=== PATIENT | female | born 1960 | race Caucasian/White ===

== ENCOUNTER 2021-04-20 11:22 | Emergency (ER) | payer BC ==
[~2021-04-20] VITALS: Ht 167.6 cm; Wt 101.0 kg
[2021-04-20 11:31] VITALS: BP 149/95
[2021-04-20] MEDS ORDERED: KETOROLAC 30 MG/ML VIAL. IVP ONE (12:00)
[2021-04-20] MEDS ORDERED: BENZONATATE 100 MG CAPSULE. PO ONE (12:00)
[2021-04-20] MEDS ORDERED: IBUPROFEN 600 MG TABLET. PO ONE (12:00)
[2021-04-20] MEDS ORDERED: IV NORMAL SALINE 1,000ML 1,000 ML IV ONE (12:00)
[2021-04-20] MEDS ORDERED: ACETAMINOPHEN 325 MG TABLET PO ONE (12:00)
--- NOTE | 2021-04-20 12:15 | PHYS DOC ---
Past History Additional Past Medical Histor: SVT Past Surgical History: Appendectomy Additional Past Surgical Histo: hernia repair, cardiac cath Adult General Chief Complaint Chief Complaint: FEVER HPI HPI Patient is a 60-year-old female presents to the emergency department with chief complaint of whitish colored sputum with cough since January, nasal pressure and face pressure with greenish-yellowish nasal sputum production when blowing nose that started approximately 10 days ago, reports a fever of 101.4 last night, patient reports she is worried she may have the COVID-19 virus, patient also worried she might have a sinus infection, patient denies chest pains or shortness of breath, denies dizziness, headaches, syncopal or near syncopal episodes, reports she has received the COVID-19 virus vaccination series, has received a flu vaccination in the fall 2020, reports receiving the pneumonia vaccine 10 years ago, patient states she has a history of pneumonia 5 times in the past. Patient reports her family members forced her to come to the emergency department to get Covid tested. Patient denies other physical complaints or physical concerns. Review of Systems Review of Systems 14 body systems of review of systems have been reviewed. See HPI for pertinent positives and negative responses, otherwise all other systems are negative, nonpertinent or noncontributory. Constitutional: Negative except as outlined in HPI above. Skin: Negative except as outlined in HPI above. Eyes: Negative except as outlined in HPI above. HENT: Negative except as outlined in HPI above. Respiratory: Negative except as outlined in HPI above. Cardiovascular: Negative except as outlined in HPI above. GI: Negative except as outlined in HPI above. : Negative except as outlined in HPI above. Musculoskeletal: Negative except as outlined in HPI above. Integument: Negative except as outlined in HPI above. Neurologic: Negative except as outlined in HPI above. Endocrine: Negative except as outlined in HPI above. Lymphatic: Negative except as outlined in HPI above. Psychiatric: Negative except as outlined in HPI above. Current Medications Current Medications Current Medications Medications (Trade) Dose Ordered Sig/Caitlin Start Time Stop Time Status Last Admin Dose Admin Acetaminophen (Tylenol) 650 mg 1X ONCE 04/20/21 12:00 04/20/21 12:01 DC Benzonatate (Tessalon Perle) 100 mg 1X ONCE 04/20/21 12:00 04/20/21 12:01 DC Ibuprofen (Motrin) 600 mg 1X ONCE 04/20/21 12:00 04/20/21 12:01 DC Ketorolac Tromethamine (Toradol 30mg Vial) 30 mg 1X ONCE 04/20/21 12:00 04/20/21 11:55 DC Sodium Chloride 1,000 ml @ 1,000 mls/hr 1X ONCE 04/20/21 12:00 04/20/21 11:55 DC Allergies Allergies Allergies Coded Allergies Type Severity Reaction Last Updated Verified lisinopril Adverse Reaction Severe COUGH 04/20/21 Yes Uncoded Allergies Type Severity Reaction Last Updated Verified SULFA Allergy Intermediate Rash 04/20/21 Physical Exam Physical Exam Constitutional: Well developed, well nourished, no acute distress, non-toxic appearance. 60-year-old female in no apparent distress. HENT: Normocephalic, atraumatic. Pain with palpation over maxillary and frontal sinuses, bilateral nasal turbinates boggy, scant clear drainage from bilateral nares, bilateral TMs within normal limits, oropharynx moist, pink, no deep tissue infectious process appreciated, no lymphadenopathy of the head or neck appreciated. Patient speaking in normal voice tones. Eyes: Conjunctiva normal, no discharge. Neck: Normal range of motion, no stridor. Cardiovascular: No cyanosis appreciated, distal cap refill less than 2 seconds. Lungs & Thorax: Patient is in no respiratory distress, no audible adventitious lung sounds appreciated. Lung sounds clear to auscultate all lung barajas. Abdomen: Nontender, no abnormalities noted. Skin: Warm, dry, no erythema, no rash. Back: No tenderness, no deformities. Extremities: No tenderness, no cyanosis, no clubbing, ROM intact, no edema. Neurologic: Alert and oriented X 3, normal motor function, normal sensory function, no focal deficits noted. Psychologic: Affect normal, judgement normal, mood normal. Current Patient Data Vital Signs Vital Signs Date Time Temp Pulse Resp B/P (MAP) Pulse Ox O2 Delivery O2 Flow Rate FiO2 04/20/21 11:31 99.2 104 18 149/95 (113) 97 Room Air EKG EKG [] Radiology/Procedures Radiology/Procedures REASON: Fever, congestion, cough PROCEDURE: CHEST AP ONLY EXAMINATION: Chest radiograph. VIEWS: 1 COMPARISON: none. INDICATION:60 years, Female, fever, cough and congestion. FINDINGS: Normal cardiomediastinal silhouette. Minimal bibasilar subsegmental atelectasis. No focal consolidation. No pleural effusion or pneumothorax. No acute osseous process. IMPRESSION: No acute cardiopulmonary process. Electronically signed by: Patrice Mckeon MD (04/20/2021 1:01 PM) [id number] Heart Score C/O Chest Pain: No Risk Factors: Risk Factors: DM, Current or recent (<one month) smoker, HTN, HLP, family history of CAD, obesity. Risk Scores: Risk Factors: DM, Current or recent (<one month) smoker, HTN, HLP, family history of CAD, obesity. Course & Med Decision Making Course & Med Decision Making Pertinent Labs and Imaging studies reviewed. (See chart for details) 60-year-old female, vital signs reviewed, presents emerged from concerning sinus pressure, stuffy nose for the past several weeks with cough nonproductive. Physical examination consistent with acute sinusitis, will order chest x-ray, COVID-19 testing rapid and PCR, rapid flu A/B testing. Patient's chest x-ray nonconcerning for acute pulmonary process, patient's rapid Covid19 testing and rapid A/B testing negative, upon reevaluation of the patient, the patient's vital signs are within normal limits, patient remains nontoxic in appearance and in no apparent distress. Discussed with patient will treat for acute sinusitis, discussed antibiotics with side effects, follow-up with primary care soon for ongoing management, return to ER precautions or concerns, patient gave verbal understanding of and is amenable to ED discharge planning. Discussed with the patient all findings and diagnostic testing as well as the need to follow-up with their primary care provider for further evaluation and treatment or return to the ED if any new or worsening symptoms. Strict return precautions were also discussed at length, the patient voiced understanding and agreement with the discharge planning. The patient was nontoxic in appearance, in no apparent distress, and hemodynamically stable at the time of disposition. Dragon Disclaimer Dragon Disclaimer This electronic medical record was generated, in whole or in part, using a voice recognition dictation system. Departure Departure: Impression: Primary Impression: Acute sinusitis Disposition: HOME / SELF CARE / HOMELESS Condition: GOOD Referrals: BONITA ENCISO MD (PCP) Patient Instructions: Sinusitis Additional Instructions: You were seen in the emergency department today for nasal congestion, cough. Your chest x-ray did not show concerning signs of infection or pneumonia. Your rapid Covid testing was negative, however there is a PCR test pending that should be available the next 24 to 48 hours. Your rapid flu A/B testing was negative today. Because of your ongoing symptoms for greater than 10 days I am treating you for acute sinusitis, please take this Augmentin medication twice a day for the next 7 days. Follow-up with your primary care physician as we discussed soon, return to the ER for worsening symptoms or other concerns. Thank you for visiting our Emergency Department. It was a pleasure taking care of you today in the emergency department and we appreciate you trusting us with your care. If any additional problems come up don't hesitate to return to visit us. Please follow up with your primary care provider so they can plan additional care if needed and know about the problem that you had. If symptoms worsen come back to the Emergency Department. Any concerning symptoms that start such as chest pain, shortness of air, weakness or numbness on one side of the body, running high fevers or any other concerning symptoms return to the ER. EMERGENCY DEPARTMENT GENERAL DISCHARGE INSTRUCTIONS Thank you for coming to [facility] (ED) today and trusting us with you care. We trust that you had a positivie experience in our Emergency Department. If you wish to speak to the department management, you may call the director at [phone]. YOUR FOLLOW UP INSTRUCTIONS ARE FOLLOWS: 1. Do you have a private Doctor? If you do not have a private doctor, please ask for a resource list of physicians or clinics that may be able to assist you with follow up care. 2. The Emergency Physician has interpreted your x-rays. The X-Ray specialist will also review them. If there is a change in the findings, you will be notified in 48 hours when at all possible. 3. A lab test or culture has been done, your results will be reviewed and you will be notified if you need a change in treatment. ADDITIONAL INSTRUCTIONS AND INFORMATION: 1. Your care today has been supervised by a physician who is specially trained in emergency care. Many problems require more than one evaluation for a complete diagnosis and treatment. We recommend that you schedule your follow up appointment as recommended to ensure complete treatment of you illness or injury. If you are unable to obtain follow up care and continue to have a problem, or if your condition worsens, we recommend that you return to the ED. 2. We are not able to safely determine your condition over the phone nor are we able to give sound medical advice over the phone. For these safety reasons, if you call for medical advice we will ask you to come to the ED for further evaluation. 3. If you have any questions regarding these discharge instructions please call the ED at [phone]. SAFETY INFORMATION: In the interest of safety, wellness, and injury prevention; we encourage you to wear your sealbelt, if you smoke; quite smoking, and we encourage family to use a protective helmet for bicycling and other sporting events that present an increased risk for head injury. IF YOUR SYMPTOMS WORSEN OR NEW SYMPTOMS DEVELOP, OR YOU HAVE CONCERNS ABOUT YOUR CONDITION; OR IF YOUR CONDITION WORSENS WHILE YOU ARE WAITING FOR YOUR FOLLOW UP A PPOINTMENT; EITHER CONTACT YOUR PRIMARY CARE DOCTOR, THE PHYSICIAN WHOSE NAME AND NUMBER YOU WERE GIVEN, OR RETURN TO THE ED IMMEDIATELY. Scripts Amoxicillin/Potassium Clav (AUGMENTIN 875-125 TABLET) 1 Each Tablet 1 TAB PO BID for acute sinusitis for 7 Days, #14 TAB 0 Refills Prov: MICHELET BARAJAS APRN 04/20/21 Problem Qualifiers Primary Impression: Acute sinusitis Sinusitis location: maxillary Recurrence: non-recurrent Qualified Codes: J01.00 - Acute maxillary sinusitis, unspecified MICHELET BARAJAS APRN Apr 20, 2021 12:15
[2021-04-20 12:54] LABS: INFLUENZA A PATIENT NEGATIVE (NEGATIVE); INFLUENZA B PATIENT NEGATIVE (NEGATIVE)
--- NOTE | 2021-04-20 13:03 | RAD ---
EXAMINATION: Chest radiograph. VIEWS: 1 COMPARISON: none. INDICATION:60 years, Female, fever, cough and congestion. FINDINGS: Normal cardiomediastinal silhouette. Minimal bibasilar subsegmental atelectasis. No focal consolidati on. No pleural effusion or pneumothorax. No acute osseous process. IMPRESSION: No acute cardiopulmonary process. Electronically signed by: Patrice Mckeon MD (04/20/2021 1:01 PM) [id number]
[2021-04-20] MEDS ORDERED: AMOX1TAB61 PO (13:24)
[2021-04-20] MEDS ORDERED: AMOXICILLIN/K CLAV 875/125MG TABLET. PO ONE (13:30)
== END 2021-04-20 13:42 | disposition home or self-care (01) ==
LOC: ER 11:22
DX: U07.1 COVID-19 (principal); J01.90 Acute sinusitis, unspecified; Z88.8 Allergy status to other drugs, medicaments and biological substances
CPT/HCPCS: 71045; 87426; 87804; 99284; C9803; U0003